=== PATIENT | female | born 1995 | race African-American/Black ===

== ENCOUNTER 2020-09-26 23:06 | Emergency (ER) | payer BC, SELFPAY ==
--- NOTE | ~2020-09-26 | US_ITS ---
EXAMINATION: US OB <=14 wk fetus w TV DATE: 09/27/2020 01:47 INDICATION: Pelvic pain and vaginal bleeding during first trimester of . TECHNIQUE: Real-time pelvic ultrasound utilizing both a transvaginal and transabdominal probe was pe rformed. The interpreting radiologist was not present for the study. COMPARISON: None. FINDINGS: The uterus measures 8.2 x 6.4 x 4.6 cm. There is an intrauterine gestational sac. A 2 mm thin-walled yolk sac is identified along with an approximately 8 mm ovoid echogenic region within the gestationa l sac is without evident heart motion on color Doppler. The in sac diameter measures 9 mm, whic h correlates with an estimated gestational age of 5 weeks and 3 days. The right ovary measures 3.2 x 2.7 x 2.0 cm. The left ovary measures 3.9 x 3.6 x 2.5 cm. Vascular joseph w identified in both ovaries on color Doppler. There is no free fluid in the pelvis. IMPRESSION: 1. Single intrauterine gestational sac containing a nonspecific 8 mm ovoid echogenic region unclear w hether this represents a pole but which is without evident heart motion and which raises concern for failed . Recommend correlation with serial beta-hCG levels. 2. Gestational age by ultrasound of mean sac diameter of 5 weeks 3 day(s) +/- 3 day(s) with ultrasou nd estimated date of delivery (BLANCA) of 05/27/2021. Reviewed, dictated and finalized at location A. BOX SPOTTER IMPRESSION: 1. Single intrauterine gestational sac containing a nonspecific 8 mm ovoid echo genic region unclear whether this represents a pole but which is without evident heart motion and which raises concern for failed . Recom mend correlation with serial beta-hCG levels. 2. Gestational age by ultrasound of mean sac diameter of 5 weeks 3 day(s) +/- 3 day(s) with ultrasound estimated date of delivery (BLANCA) of 05/27/2021.
[2020-09-26 23:13] VITALS: BP 128/98; PULSE 79; RESP 18; TEMP 36.3; O2SAT 100
[2020-09-26 23:54] LABS: Basophils Percent Auto 0.1 % (0.2-1.2); Eosinophils Absolute Auto 0.1 K/mm3 (0-0.3); Eosinophils Percent Auto 1.2 % (0-4.4); Hematocrit 36.8 % (37.0-47.0); Immature Granulocyte Absolute 0.02 K/mm3 (0.00-0.031); Immature Granulocyte Percent A 0.2 % (0-0.5); Lymphocytes Absolute Auto 1.99 K/mm3 (0.9-3.2); Lymphocytes Percent Auto 24.8 % (18.3-44.2); Mean Corpuscular HGB Conc 32.6 g/dl (32-36); Mean Corpuscular Hemoglobin 29.4 pg (26-34); Mean Corpuscular Volume 90.2 fl (80-100); Mean Platelet Volume 9.7 fl (7.4-10.4); Monocytes Absolute Auto 0.7 K/mm3 (0.1-0.6); Monocytes Percent Auto 9.2 % (2.6-8.5); Neutrophils Absolute Auto 5.2 K/mm3 (1.3-6.7); Neutrophils Percent Auto 64.5 % (45.5-73.1); Platelet Count Result 242 k/mm3 (150-375); Red Blood Count 4.08 M/mm3 (4.2-5.4); Red Cell Distribution Width 12.5 % (11.5-14.5)
[2020-09-27 00:04] LABS: Alanine Aminotransferase 15 U/L (4-35); Alkaline Phosphatase 52 U/L (38-126); Anion Gap 7 mmol/L (8-16); Aspartate Amino Transferase 23 U/L (14-36); Bilirubin,Total 0.3 mg/dL (0.2-1.3); Blood Urea Nitrogen 12 mg/dL (7-17); Calcium 9.3 mg/dL (8.4-10.2); Carbon Dioxide 28 mmol/L (22-30); Chloride 100 mmol/L (98-107); Estimated Glomerular Filt Rate > 60; Glucose 83 mg/dL (65-105); Potassium 3.7 mmol/L (3.4-5.0); Sodium 135 mmol/L (137-145)
[2020-09-27] MEDS: SODIUM CHLORIDE 0.9% IV 1,000 ML 999 ML IV CONT (00:16)
--- NOTE | 2020-09-27 00:34 | ED.GENADULT ---
HPI - General Adult General Chief complaint: Vaginal Bleeding Stated complaint: vaginal bleeding, 3-5wks Time Seen by Provider: 09/26/20 23:33 History of Present Illness HPI narrative: Patient a 24-year-old female presents the emergency department with chief complaint of vaginal bleeding. Patient states that she has recently found out that she was and was approximately 5 weeks . The patient states that she started having pain in her low back and also her pelvis states that it feels as though a cramping type discomfort. Patient states that she is on her second the previous one was a miscarriage. Patient reports she is just started seeing an POLICY ANALYST and has just had a positive test and has not had an ultrasound of this . Patient states that she has had some light vaginal bleeding of which she used several pieces of toilet paper to be able to stop the bleeding. Patient states that she has not had to use a pad. Patient denies fever denies shortness of breath denies chest pain. Related Data Allergies Allergy/AdvReac Type Severity Reaction Status Date / Time tramadol AdvReac Rash Verified 09/27/20 00:15 Course Course Emergency Course: Ultrasound shows evidence of a 5-week 3-day gestational sac. There is no pole or cardiac activity noted on ultrasound. Patient will need to follow-up with her POLICY ANALYST for short-term reassessment Vital Signs Vital signs: Vital Signs Temperature 36.3 C L 09/26/20 23:13 Pulse Rate 79 09/26/20 23:13 Respiratory Rate 18 09/26/20 23:13 Blood Pressure 128/98 H 09/26/20 23:13 Pulse Oximetry 100 09/26/20 23:13 Temperature 36.3 C L 09/26/20 23:13 Pulse Rate 79 09/26/20 23:13 Respiratory Rate 18 09/26/20 23:13 Blood Pressure 128/98 H 09/26/20 23:13 Pulse Oximetry 100 09/26/20 23:13 Medical Decision Making Vital Signs Vital Signs: Vital Signs Temperature 36.3 C L 09/26/20 23:13 Pulse Rate 79 09/26/20 23:13 Respiratory Rate 18 09/26/20 23:13 Blood Pressure 128/98 H 09/26/20 23:13 Pulse Oximetry 100 09/26/20 23:13 Temperature 36.3 C L 09/26/20 23:13 Pulse Rate 79 09/26/20 23:13 Respiratory Rate 18 09/26/20 23:13 Blood Pressure 128/98 H 09/26/20 23:13 Pulse Oximetry 100 09/26/20 23:13 Lab Data Result diagrams: 09/26/20 23:43 09/26/20 23:43 Labs: Lab Results 09/26/20 09/26/20 09/26/20 Range/Units 23:43 23:43 23:43 WBC 8.0 (4.5-10.0) K/mm3 RBC 4.08 L (4.2-5.4) M/mm3 Hgb 12.0 (12.0-15.0) g/dL Hct 36.8 L (37.0-47.0) % MCV 90.2 (80-100) fl MCH 29.4 (26-34) pg MCHC 32.6 (32-36) g/dl RDW 12.5 (11.5-14.5) % Plt Count 242 (150-375) k/mm3 MPV 9.7 (7.4-10.4) fl Immature Gran % (Auto) 0.2 (0-0.5) % Neut % (Auto) 64.5 (45.5-73.1) % Lymph % (Auto) 24.8 (18.3-44.2) % Kings % (Auto) 9.2 H (2.6-8.5) % Eos % (Auto) 1.2 (0-4.4) % Baso % (Auto) 0.1 L (0.2-1.2) % Lymph # (Auto) 1.99 (0.9-3.2) K/mm3 Kings # (Auto) 0.7 H (0.1-0.6) K/mm3 Eos # (Auto) 0.1 (0-0.3) K/mm3 Baso # (Auto) 0.0 (0.0-0.1) K/mm3 Abs Immat Gran (auto) 0.02 (0.00-0.031) K/mm3 Absolute Neuts (auto) 5.2 (1.3-6.7) K/mm3 Absolute Nucleated RBC 0.0 (0.0-0.012) K/mm3 Nucleated RBC % 0.0 (0.0-0.2) % Sodium 135 L (137-145) mmol/L Potassium 3.7 (3.4-5.0) mmol/L Chloride 100 (98-107) mmol/L Carbon Dioxide 28 (22-30) mmol/L Anion Gap 7 L (8-16) mmol/L BUN 12 (7-17) mg/dL Creatinine 1.00 (0.7-1.0) mg/dL Estim Creat Clear Calc Not Reportable Estimated GFR > 60 (59 - ) Glucose 83 (65-105) mg/dL Calcium 9.3 (8.4-10.2) mg/dL Total Bilirubin 0.3 (0.2-1.3) mg/dL AST 23 (14-36) U/L ALT 15 (4-35) U/L Alkaline Phosphatase 52 (38-126) U/L Total Protein 7.0 (6.3-8.2) g/dL Albumin 4.0 (3.5-5.1) g/dL Beta HCG,
[2020-09-27 01:38] LABS: Add Urine Microscopic? YES; Appearance Urine Clear (Clear); Bacteria Urine 3+ /hpf; Bilirubin Urine Negative (Negative); Blood Urine Negative (Negative); Color Urine Straw (Yellow); Glucose Urine UA Negative (Negative); Ketones Urine Negative (Negative); Leukocyte Esterase Ur Negative LEU/UL (Negative); Nitrate Urine Negative (Negative); Protein Urine Negative (Negative); RBC Urine 0-2 /hpf (0-2); Specific Grav Ur 1.014 (1.001-1.035); Squamous Epithelial Cell Urine Rare /hpf (Few); Urobilinogen Urine Negative mg/dL (<2.0); WBC Urine 0-3 /hpf
== END 2020-09-27 02:44 | disposition home or self-care (01) ==
PROVIDERS: Emergency Provider Emergency Medicine
DX: O20.0 Threatened abortion (principal); Z3A.01 Less than 8 weeks gestation of pregnancy
CPT/HCPCS: 36415; 76801; 76817; 80053; 81001; 84702; 85025; 85461; 96361; 96374; 99284; J0131; J7030

== ENCOUNTER → 2020-10-28 13:20 | Outpatient (CLI) | payer BC, SELFPAY ==
--- NOTE | ~2020-10-28 | US_ITS ---
EXAMINATION: US OB <= 14 weeks fetus DATE: 10/28/2020 13:54 INDICATION: Vaginal spotting. TECHNIQUE: Real-time transabdominal and transvaginal obstetric ultrasound. FINDINGS: Comparison to ultrasound dated 09/27/2020 The uterus measures 11.5 x 6.2 x 6.6 cm. There is an intrauterine gestational sac, with pole id entified. The crown rump length measures 2.99 cm. heart tones are identified measuring 182 bpm . Ovaries are not visualized. No free fluid in the pelvis. IMPRESSION: 1. SL IUP with an EGA of 9 weeks, 6 days (EDC by initial ultrasound of 05/27/2021). Appropriate inter justa growth. Reviewed, dictated and finalized at location A. S AND SERVICE OFFICER IMPRESSION: 1. SL IUP with an EGA of 9 weeks, 6 days (EDC by initial ultrasound of 05/27/20 21). Appropriate interval growth.
== END ==
PROVIDERS: Visit Provider Nurse Practitioner
DX: O26.851 Spotting complicating pregnancy, first trimester (principal); Z3A.09 9 weeks gestation of pregnancy
CPT/HCPCS: 76801

== ENCOUNTER → 2021-01-08 15:02 | Outpatient (CLI) | payer BC, SELFPAY ==
--- NOTE | ~2021-01-08 | US_ITS ---
US OB >= 14 weeks Fetus DATE: 01/08/2021 15:49 INDICATION: anatomy screen TECHNIQUE: Real-time imaging and Doppler analysis COMPARISON: 10/28/2020 obstetrical ultrasound examination 09/27/2020 obstetrical ultrasound examination FINDINGS: Live stanley intrauterine gestation, fetus in breech presentation. Anterior placenta, lower margin 8.9 cm above the internal os. Subjectively normal amount of amniotic fluid. No cerebral ventriculomegaly. facial profile appears normal. Nose and lips are unremarkab le. The cerebellum appears normal. Normal nuchal fold. The spine appears unremarkable on transverse and longitudinal views. diaphragm is intact. 4 chamber heart with heart rate of 168 bpm. Outflow tracts appear normal. No hydronephrosis. The kidneys appear unre markable. Fluid is demonstrated in the stomach and urinary bladder. extremities unr emarkable. Three-vessel umbilical cord with normal insertion at abdominal wall. Biparietal diameter 4.79 cm; 20 weeks 3 days estimated gestational age Head circumference 18.18 cm; 20 weeks 4 days Abdominal circumference 15.52 cm; 20 weeks 5 days Femur length 3.01 cm; 19 weeks 2 days Composite age by Hadlock formula based on the current measurements would be 20 weeks 2 days +/- 1 wee k 3 days with BLANCA of 05/26/2021, identical with estimated gestational age based upon 09/27/2020 mean sac diameter measurement and consistent with BLANCA of 05/27/2021 by last menstrual period. Estimated weight is 333.3 +/- 50 grams. EFW-GP: 43.8% Head circumference/abdominal circumference 1.17, within normal range of 1.07-1.25 Femur length/head circumference 16.56, within lower normal range of 16.54-19.94 IMPRESSION: Normal interval growth Reviewed, dictated and finalized at Location [facility]. Reviewed, dictated and finalized at location A. IMPRESSION: Normal interval growth
== END ==
PROVIDERS: Visit Provider Obstetrics & Gynecology
DX: Z36.9 Encounter for antenatal screening, unspecified (principal); Z3A.00 Weeks of gestation of pregnancy not specified
CPT/HCPCS: 76805

== ENCOUNTER 2024-08-06 17:37 | Emergency (ER) | payer BC, SELFPAY ==
[2024-08-06 18:02] VITALS: BP 105/62; PULSE 64; RESP 18; TEMP 36.2; O2SAT 100
[2024-08-06 18:13] LABS: EDUAAPPEAR Cloudy; EDUABILI Negative (Negative); EDUABLOOD Trace (Negative); EDUACOLOR1 Yellow; EDUAGLUCOSE Negative (Negative); EDUAKETONE Negative (Negative); EDUALEUKO 1+ (Negative); EDUANITRATE Positive (Negative); EDUAPROTEIN 1+ (Negative); EDUASPGRAVITY 1.025; EDUAUROBILI 0.2
--- NOTE | 2024-08-06 18:22 | ED.FEMALEGU ---
HPI - Female Genitourinary General Chief complaint: Urogenital-Female Stated complaint: possible UTI Time Seen by Provider: 08/06/24 18:22 History of Present Illness HPI Narrative: patient presents with complaints of urinary frequency and burning for 2 days. She reports that she became alarmed today when she noted some blood in her urine. She is concerned about STIs well as UTI. She reports that her and her partner recently stopped using condoms. She denies any vaginal discharge or vaginal odor. She does report urinary frequency, burning, urinary odor. She denies any abdominal pain or back pain. She denies any fever, chills, sweats. She voices no other concerns or complaints at this time. Related Data Home Medications Medication Instructions Recorded Confirmed levonorgestrel 21 mcg/24 hr (up to 1 device intrauterine ONCE 08/06/24 08/06/24 8 years) 52 mg intrauterine device (Mirena) valacyclovir 1 gram tablet 1,000 mg PO DAILY 08/06/24 08/06/24 Allergies Allergy/AdvReac Type Severity Reaction Status Date / Time levofloxacin AdvReac Mild Rash Verified 08/06/24 18:15 tramadol AdvReac Mild Rash Verified 08/06/24 17:38 Review of Systems Review of Systems: All systems reviewed & are unremarkable except as noted in HPI and below Constitutional: Constitutional: Reports no additional constitutional complaints ENT: Reports system reviewed and no additional complaints, except as documented Cardiovascular: Cardiovascular: Reports no additional cardiovascular complaints Respiratory: Respiratory: Reports no additional respiratory complaints Gastrointestinal: Gastrointestinal: Reports no additional gastrointestinal complaints Genitourinary: Genitourinary: Reports no additional female genitourinary complaints, Reports as per HPI, Reports dysuria and Reports urinary urgency Exam Const: General: cooperative, no acute distress, alert and awake Orientation/consciousness: oriented to person, oriented to place and oriented to time HENMT: Head: normal to inspection Resp: Effort & Inspection: normal respiratory effort and able to speak in complete sentences Auscultation: clear to auscultation bilaterally, no crackles, no rales, no rhonchi and no wheezes Cardio: Palpation: normal PMI Rate: regular rate Rhythm: regular rhythm Heart sounds: S1 normal heart sound present and S2 normal heart sound present : General: Yes no CVA tenderness Neuro: General: oriented to person, oriented to place and oriented to time Cranial nerves: Yes CN's II-XII intact bilaterally Psych: Appearance: grossly normal Thought process: Normal thought process present Insight: Good insight present (Psych) Judgement: Good judgement present (Psych) Course Course Level of Care: Express Care Visit Vital Signs Vital signs: Vital Signs Temperature 97.1 F L 08/06/24 18:02 Pulse Rate 64 08/06/24 18:02 Respiratory Rate 18 08/06/24 18:02 Blood Pressure 105/62 08/06/24 18:02 Pulse Oximetry 100 08/06/24 18:02 Oxygen Delivery Room Air 08/06/24 18:02 Temperature 97.1 F L 08/06/24 18:02 Pulse Rate 64 08/06/24 18:02 Respiratory Rate 18 08/06/24 18:02 Blood Pressure 105/62 08/06/24 18:02 Pulse Oximetry 100 08/06/24 18:02 Oxygen Delivery Room Air 08/06/24 18:02 MDM - Female Genitourinary MDM Narrative Medical decision making narrative: Reassuring physical exam. UA is consistent with UTI. Treat with Macrobid. Culture sent. STI testing pending. Patient aware. Nontoxic appearing, stable for discharge home. Discharge instructions reviewed with patient, as well as provided in writing per nursing staff. The instructions also include specific and strict return/GO TO THE ER as well as f/u information. All questions have been answered, and the patient deny any further questions with discharge and discharge plan. Some parts of this dictation were generated by voice recognition software and may contain typographical and/or grammatical inaccuracies. Differential Diagnosis Differential diagnosis: Likely urinary tract infection, trichomoniasis, cervicitis and vaginitis Lab Data Labs: Lab Results 08/06/24 Range/Units 18:11 POC Urine Color Yellow POC Urine Clarity Cloudy POC Urine pH 7.0 POC Ur Specif [place] 1.025 POC Urine Protein 1+ (Negative) POC Ur Glucose (UA) Negative (Negative) POC Urine Ketones Negative (Negative) POC Urine Blood Trace (Negative) POC Urine Nitrite Positive (Negative) POC Urine Bilirubin Negative (Negative) POC Urine Urobilinogen 0.2 POC U Leukocyte Esteras 1+ (Negative) Discharge Plan Discharge Clinical Impression: Urinary tract infection Qualifiers: Urinary tract infection type: site unspecified Hematuria presence: with hematuria Qualified Code(s): N39.0 - Urinary tract infection, site not specified Patient Disposition: Home, Self-Care Condition: Stable Instructions: Antibiotic Form, Urinary Tract Infection in Women (ED) Prescriptions: New nitrofurantoin monohyd/m-cryst [Macrobid] 100 mg capsule 100 mg PO Q12H 5 Days Qty: 10 0RF Rx Instructions: must administer with a meal/food No Action valacyclovir 1 gram tablet 1,000 mg PO DAILY Mirena 21 mcg/24hr (up to 8 yrs) 52 mg Intrauterine Device 1 device INTRAUTERINE ONCE Rx Instructions: as a single dose Follow-up/Referrals: Austin,Mauri Contreras MD [Primary Care Provider] - 2 Weeks Time of Disposition: 18:48
[2024-08-07 20:40] LABS: Chlamydia trachomatis NOT DETECTED (NOT DETECTE); Neisseria gonorrhoeae PCR NOT DETECTED (NOT DETECTE)
[2024-08-07 21:32] LABS: Trichomonas Vag PCR NOT DETECTED (NOT DETECTE)
== END 2024-08-06 18:50 | disposition home or self-care (01) ==
PROVIDERS: Emergency Provider Nurse Practitioner Family; PCP Family Medicine
DX: N39.0 Urinary tract infection, site not specified (principal)
CPT/HCPCS: 81003; 87086; 87186; 87491; 87591; 87661; 99213; G0463

== ENCOUNTER 2025-01-14 12:17 | Emergency (ER) | payer BC, SELFPAY ==
[2025-01-14 12:24] VITALS: BP 125/75; PULSE 68; RESP 18; TEMP 36.7; O2SAT 100
--- NOTE | 2025-01-14 12:30 | ED_ITS ---
HPI - Female Genitourinary General Chief complaint: Urogenital-Female Stated complaint: possible bacteria infection Time Seen by Provider: 01/14/25 12:35 Source: patient Mode of arrival: ambulatory Limitations: no limitations History of Present Illness HPI Narrative: Here with concern for possible STD. She reports a one-week history of feeling like she has vaginal odor, increased urinary frequency, and feeling irritated in her genital area. She reports white thin discharge. Reports a cyst on her left labia which is normal for her, but she denies any recent cyst prior to this. she denies any vaginal itch. Reports one new sex partner. Reports 2 male sex partners within the last year. Reports unprotected sex. Reports history of past STDs in the last 1-2 years. Uses IUD for prevention. She denies any concerns. She denies any fever or pelvic or abdominal pain. Denies nausea or vomiting. Related Data Home Medications ?Medication ?Instructions ?Recorded ?Confirmed ?Last Taken ?Type levonorgestrel (Mirena) 1 device intrauterine ONCE 08/06/24 08/06/24 Unknown History valacyclovir 1 gram tablet 1,000 mg PO DAILY 08/06/24 08/06/24 Unknown History Allergies Allergy/AdvReac Type Severity Reaction Status Date / Time levofloxacin Allergy Mild Rash Verified 01/14/25 12:29 tramadol Allergy Mild Rash Verified 01/14/25 12:29 Review of Systems Review of Systems: CONSTITUTIONAL: Denies fever, chills, or sweats. EYES: Denies visual changes, redness, or discharge. ENT: Denies rhinorrhea, congestion, sore throat, or otalgia. CARDIOVASCULAR: Denies chest pain, palpitations, or edema. RESPIRATORY: Denies cough or dyspnea. GASTROINTESTINAL: Denies abdominal pain, nausea, vomiting, or diarrhea. GENITOURINARY: Denies dysuria or hematuria. SKIN: Denies rash or itching. MUSCULOSKELETAL: Denies back pain, joint pain, or myalgia. NEUROLOGIC: Denies headache, numbness, or weakness. PSYCHIATRIC: Denies anxiety or depression. All other systems reviewed are negative, except as documented in HPI. Exam Narrative: GENERAL: This is a well-nourished, well-developed patient, in no apparent distress. HEAD: normocephalic, atraumatic. EYES:Sclera clear/white. EARS: External ears normal. NOSE: External nose normal with no obvious nasal discharge. THROAT: Trachea midline. RESPIRATORY: No cough. No dyspnea. SKIN: warm, Dry, intact with no suspicious lesions or rash, good texture and turgor. NEURO: awake, alert, and oriented to person, place and time. There were no obvious focal neurologic abnormalities. EXTREMITIES: No joint tenderness, effusion, or edema noted. : Pelvic exam performed with (Ashanti MARTINEZ) at bedside. Verbal consent obtained from patient. Normal external female genitalia without lesions or masses, Urinary meatus: patent without discharge, Vagina: No lesions, masses, or discharge, Cervix: pink without mass, lesions, or tenderness. Notable white thin discharge. Course Course Level of Care: Express Care Visit Vital Signs Vital signs: Vital Signs Temperature 36.7 C 01/14/25 12:24 Pulse Rate 68 01/14/25 12:24 Respiratory Rate 18 01/14/25 12:24 Blood Pressure 125/75 01/14/25 12:24 Pulse Oximetry 100 01/14/25 12:24 Oxygen Delivery Room Air 01/14/25 12:24 Temperature 36.7 C 01/14/25 12:24 Pulse Rate 68 01/14/25 12:24 Respiratory Rate 18 01/14/25 12:24 Blood Pressure 125/75 01/14/25 12:24 Pulse Oximetry 100 01/14/25 12:24 Oxygen Delivery Room Air 01/14/25 12:24 Reviewed. MDM - Female Genitourinary MDM Narrative Medical decision making narrative: Patient with vaginal irritation white vaginal discharge. Her UA was negative for infection today. Patient concerned for a possible STD with new sex partner. Pelvic exam notable for white thin cervical discharge. Exam was otherwise normal today. Shared decision making with patient and patient elected for pelvic exam in clinic today. Patient and I discussed treatment versus waiting for test results. She will wait for test results prior to any treatment. Patient is aware of and agrees this plan. Lab Data Lab results narrative: UA negative for infection today. Discharge Plan Discharge Clinical Impression: Vaginal discharge Patient Disposition: Home Condition: Stable Instructions: Antibiotic Form, Sexually Transmitted Diseases (ED), Safe Sex Practices (ED) Additional Instructions: You were seen and tested today for STD exposure.? You do not require a pre scription to go home on.? Your test results will not be available for 3-4 days after test submitted.? No sex for 7 days after last partner treated.? Practice safe sex; use condoms with each sexual encounter.? Please follow up with primary medical provider.?? Patient Language: Frisian Prescriptions: No Action valacyclovir 1 gram tablet 1,000 mg PO DAILY Mirena 21 mcg/24hr (up to 8 yrs) 52 mg Intrauterine Device 1 device INTRAUTERINE ONCE Rx Instructions: as a single dose Follow-up/Referrals: Austin,Mauri Contreras MD [Primary Care Provider] - Time of Disposition: 13:20
[2025-01-14 12:33] LABS: EDUAAPPEAR Clear; EDUABILI Negative (Negative); EDUABLOOD Negative (Negative); EDUACOLOR1 Yellow; EDUAGLUCOSE Negative (Negative); EDUAKETONE Negative (Negative); EDUALEUKO Negative (Negative); EDUANITRATE Negative (Negative); EDUAPROTEIN Negative (Negative); EDUAUROBILI 0.2
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
--- OUTSIDE RECORDS SUMMARY | 2025-01-14 13:45 | XMS_ITS | Clinical Summary ---
Author Organization [facility] Address [address] [address] Care Team Providers Care Extruder Operator Helper Name Role Phone Anali Perez MD Unavailable [phone] Mauri Avila MD Primary Care Provider [phone] Source Comments [facility],non-owned Affiliates and Associated Physician Practices is amultiple site organization consisting of ambulatory clinics and hospital sitesin [place], [place], [place] and [place]. This disclosure is being madepursuant to the Care Everywhere program and may not contain all information available regarding this patient. Last updated 18.[facility] Allergies Active Allergy Reactions Criticality Noted Date Comments Kiwi Extract Rash,Swelling,Other High 02/15/2019 Swollen tongue Levofloxacin Rash Medium 02/15/2019 rash Peanut-Derived Rash,Swelling Medium 02/15/2019 Swollen tongue Mouth swelling Pet fur/dander [Other] Rash,Swelling,Oth er, Cough Medium Puffiness, sneezing Pollen Extract Rash,Rhinitis,Other, Wheezing Medium 02/15/2019 Watery eyes Tramadol Urticaria,Rash,Unkno wn Medium 02/15/2019 rash Medications * Be aware that medications may not be up to date on this document. Alwaysverify current medications with the patient. levonorgestrel (Mirena, 52 MG,) 20 MCG/DAY IUD Mirena 21 mcg/24 hours (8 yrs) 52 mg intrauterine device Take 1 device by intrauterine route. Active valACYclovir (Valtrex) 1 GM tablet Take 1 (one) tablet by mouth once daily 3 Active EPINEPHrine (Epipen) 0.3 MG/0.3ML auto-injector pen Inject 0.3 mL into muscle once as needed for Anaphylaxis 2 Active albuterol HFA (Proventil; Ventolin; Proair) 108 (90 Base) MCG/ACT inhaler Inhale 2 (two) puffs by mouth every 4 hours as needed Active montelukast (Singulair) 10 MG tablet Take 1 (one) tablet by mouth every evening 3 Active omeprazole (PriLOSEC) 40 MG capsule Take 1 (one) capsule by mouth once daily 90 capsule 1 3 Active metoclopramide (Reglan) 5 MG tablet Take 1 (one) tablet by mouth every 6 hours as needed for Nausea/Vomiting 20 tablet 3 Active Additional Information Patient not taking.Reported on 11/25/2023 hyoscyamine (Levsin) 0.125 MG IR tablet Take 1 (one) tablet by mouth every 6 hours as needed for Spasms 20 tablet 3 Active Additional Information Patient not taking.Reported on 08/02/2023 docusate sodium (Colace) 100 MG capsule Take 1 (one) capsule by mouth 2 times daily as needed for Constipation (relief of difficult bowel movements) 3 Active Additional Information Patient not taking.Reported on 08/02/2023 magnesium hydroxide (Milk Of Magnesia) 400 MG/5ML suspension Take 15 mL by mouth as needed for Constipation May start 3 days after surgery, if you still haven't had a bowel movement. Give the first dose at least 8 hours to work, before you repeat it to avoid diarrhea. Let us know if you still can't have a BM, with both colace and milk of magnesia, by day 4 after surgery. 3 Active Additional Information Patient not taking.Reported on 08/02/2023 Simethicone (GAS-X PO) Take 1 tablet by mouth as needed (gas) Active Multiple Vitamins-Minera ls (CENTRUM SILVER PO) Take 1 tablet by mouth 2 times daily Active CALCIUM CITRATE PO Take 1 tablet by mouth 2 times daily Active Active Problems Problem Noted Date Diagnosed Date S/P gastric sleeve procedure 08/02/2023 Morbid obesity 07/25/2023 Hypertension, unspecified type 07/25/2023 Obstructive sleep apnea syndrome 07/25/2023 Moderate persistent asthma with acute exacerbati on 07/25/2023 Class 2 obesity due to exces s calories with body mass index (BMI) of 38.0 to 38.9 in adult, unspecified whether serious comorbidity present 07/25/2023 PCOS (polycystic ovarian syndrome) 03/11/2023 Polyp of colon 03/11/2023 Class 3 severe obesity with body mass index (BMI) of 40.0 to 44.9 in adult 03/11/2023 Asthma 02/22/2023 Vitamin B12 deficiency 02/22/2023 Psoriasis 02/22/2023 BMI 40.0-44.9, adult 02/22/2023 Family history of colon cancer 02/22/2023 H/O cold sores 02/22/2023 Hypercholesteremia 02/22/2023 Dyslipidemia 02/22/2023 IBS (irritable bowel syndrome) 02/07/2023 Mild intermittent asthma without complication 02/07/2023 Morbid obesity due to excess calories 07/02/2022 02/07/2023 Overview (02/07/2023): Added automatically from request for surgery [id number] Hypertension 08/26/2020 Overview (02/07/2023): due to preeclampsia Vitamin D deficiency 08/26/2020 Overview (02/22/2023): due to preeclampsia Eczema 05/01/2018 Environmental allergies 12/30/2016 Sleep apnea 11/24/2009 Resolved Problems Problem Noted Date Diagnosed Date Resolved Date Nonspecific abnormal electro cardiogram (ECG) (EKG) 02/22/2023 06/29/2023 Preeclampsia 02/07/2023 02/22/2023 delivery, delivered , current hospitalization 05/28/2021 02/22/2023 Normal course 05/28/2021 05/26/2021 02/22/2023 Encounter for elective induction of labor 05/22/2021 02/22/2023 Immunizations Immunization Administration Dates Next Due INFLUENZA VACCINE, QUADR. (F LUZONE; FLULAVAL; FLUARIX; AFLURIA QUADRIVALENT; 6MO+), 0.5 ML (IIV4) 07/27/2023 Family History Medical History Relation Name Comments Cancer Father On paternal hilda e, there is history of colon cancer. Diabetes; unknown type Father Heart Failure Father Diabetes; unknown type Maternal Grandfather Cancer Maternal Grandmother On mate rnal side, there is history of badder, ovary, breast. Heart Failure Paternal Grandfather Diabetes; unknown type Paternal Grandmother Heart Failure Paternal Grandmother Relation Name Status Comments Father Maternal Grandfather Maternal Grandmother Paternal Grandfather Paternal Grandmother Social History Tobacco Use Types Packs/Day Years Used Date Smoking Tobacco: Never Smokeless Tobacco: Never Tobacco Cessation:Counseling Given: Not Answered Alcohol Use Standard Drinks/Week Comments Not Currently 0 (1 standard drink = 0.6 oz pur e alcohol) socially/occassional AUDIT-C Answer Date Recorded Q1: How often do you have a drink containing alcohol? Never 07/25/2023 Q2: How many drinks containi ng alcohol do you have on a typical day when you are drinking? Patient does not drink Q3: How often do you have si x or more drinks on one occasion? Never 07/25/2023 Overall Financial Resource Strain (CARDIA) Answe r Date Recorded How hard is it for you to pa y for the very basics like food, housing, medical care, and heating? Not hard at all 07/26/2023 PHQ-2 Answer Date Recorded Patient Health Questionnaire-2 Score 0 11/25/2023 [facility] - Occupational Stress Questionnaire Answer Date Recorded Do you feel stress - tense, restless, nervous, or anxious, or unable to sleep at night because your mind is troubled all the time - these days? Not at all 07/26/2023 Hunger Vital Sign Answer Date Recorded Within the past 12 months, y ou worried that your food would run out before you got the money to buy more. Never true 07/26/20 23 Within the past 12 months, t he food you bought just didn't last and you didn't have money to get more. Never true 07/26/2023 PRAPARE - Transportation Answer Date Re corded In the past 12 months, has l ack of transportation kept you from medical appointments or from getting medications? No 06/28 In the past 12 months, has l ack of transportation kept you from meetings, work, or from getting things needed for daily living? No 07/26/2023 Housing Stability Vital Sign Answer Bin e Recorded In the last 12 months, was t here a time when you were not able to pay the mortgage or rent on time? No 07/26/2023 In the last 12 months, how many places have you lived? 1 07/26/2023 In the last 12 months, was t here a time when you did not have a steady place to sleep or slept in a snf (including now)? No 07/26/2023 Comments No Sex and Gender Information Value Date Recorded Sex Assigned at Female 10/13/2022 9:35 AM BERRY PLANTER Legal Sex Female 6:11 PM BERRY PLANTER Gender Identity Female 10/10/2019 3:50 PM BERRY PLANTER Sexual Orientation Straight 10/13/2022 9: 35 AM BERRY PLANTER Last Filed Vital Signs Vital Sign Reading Time Taken Comments Blood Pressure 130/66 08/02/2023 11:00 AM BERRY PLANTER Pulse 73 08/02/2023 11:00 AM BERRY PLANTER Temperature 36.2 C (97.1 F) 08/02/2023 11:00 AM BERRY PLANTER Respiratory Rate 18 08/02/2023 11:0 0 AM BERRY PLANTER Oxygen Saturation 99% 08/02/2023 11: 00 AM BERRY PLANTER Inhaled Oxygen Concentration - - Weight 68 kg (150 lb) 02/06/2024 10:00 AM CDT Per pt-as of Sunday 11/05 Height 162.6 cm (5' 4 ) 02/06/2024 10:0 0 AM CDT Body Mass Index 25.75 02/06/2024 10:00 AM CDT Plan of Treatment Health Maintenance Due Date Last Done Comments PAP SMEAR 1995 HEPATITIS C SCREENING 12/05/2013 DTAP/TDAP/TD VACCINES (1 - Tdap) 12/09/2014 HEPATITIS B VACCINE (1 of 3 - 19+ 3-dose series) 12/09/2014 PNEUMOCOCCAL VACCINE (1 of 2 - PCV) 12/09/2014 COVID-19 VACCINE (3 - 2023-2 5 season) 2024 04/25/2021, 03/28/2021 DEPRESSION SCREENING 09/26/2024 11/25/2023, 03/10/2023 INFLUENZA VACCINE (Season Ended) 2025 07/27/2023, 08/08/2022 ZOSTER VACCINE (1 of 2) 12/09/2045 HIV SCREENING Completed 03/20/2021, 10/27/2020 HIB VACCINE Aged Out No longer eligi ble based on patient's age to complete this topic HPV VACCINE Aged Out No longer eligi ble based on patient's age to complete this topic MENINGOCOCCAL (Group B) VACCINE SHARED DECISION-MAKING Aged Out No longer eligible based on patient's age to complete this topic MENINGOCOCCAL GROUPS A/C/Y/W VACCINE Aged Out No longer eligible b ased on patient's age to complete this topic Insurance [place] [id number] Advance Directives * Full Code (Latest Code Status on File) Date Activated Date Inactivated Comments 07/25/2023 2:27 PM 07/27/2023 7:28 PM Care Teams Extruder Operator Helper Relationship Specialty Start Date End Date Mauri Avila MD [address] [place] [phone] PCP - General Family Medicine 02/23/23 Anali Perez MD [address] [place] [address] Primary Care Provider Obstetrics and Gynecology 02/22/23
--- OUTSIDE RECORDS SUMMARY | 2025-01-14 13:45 | XMS_ITS | Referral Summary ---
Author Organization [facility] Address [address] [place] [address] Care Team Providers Care Social Service Worker Name Role Phone Jose Dawn MD Unavailable [phone] Mauri Avila MD Primary Care Provider [phone] Allergies Active Allergy Reactions Criticality Noted Date Comments Cat Dander Rash,Sneezing Medium 02/15/2019 Watery eyes Kiwi Rash,Swollen tongue High 02/15/2019 Levofloxacin Rash Medium 02/15/2019 Peanut Swelling,Rash Medium 02/15/2019 Mouth swelling Pollen Extracts Rash,Sneezing Medium 02/15/2019 Watery eyes Tramadol Hcl Rash Medium 02/15/2019 Medications triamcinolone (KENALOG) 0.1 % ointment APPLY THIN COAT TO AFFECTED AREA TWICE A DAY 0 12/21/19 19 Active valACYclovir (VALTREX) 1 gram tablet 0 11/11/19 19 Active albuterol HFA (PROVENTIL HFA,VENTOLIN HFA,PROAIR HFA) 90 mcg/actuation inhaler Inhale 2 puffs every 6 (six) hours as needed 10/10/19 20 Active cholecalcifero l (VITAMIN D-3) 5,000 unit capsule cholecalciferol (vitamin D3) 125 mcg (5,000 unit) capsule TAKE 1 CAPSULE BY MOUTH EVERY DAY 02/18/20 21 Active ferrous fumarate 324 mg (106 mg iron) tablet Take 1 tablet by mouth daily 05/28/20 21 Active levonorgestreL (Mirena) IUD Mirena 20 mcg/24 hours (7 yrs) 52 mg intrauterine device Take 1 device by intrauterine route. Activ e Active Problems Problem Noted Date Diagnosed Date Mild intermittent asthma without complication Morbid obesity due to excess calories 07/02/2022 Overview (07/02/2022): Added automatically from request for surgery [id number] BMI 37.0-37.9, adult 04/28/2022 Flexural eczema 05/01/2018 Environmental allergies 12/30/2016 Social History Tobacco Use Types Packs/Day Years Used Date Smoking Tobacco: Never Smokeless Tobacco: Never Tobacco Cessation:Counseling Given: Not Answered Alcohol Use Standard Drinks/Week Comments Yes 0 (1 standard drink = 0.6 oz pur e alcohol) Social AUDIT-C Answer Date Recorded Q1: How often do you have a drink containing alc ohol? 2-4 times a month 03/21/2023 Q2: How many drinks containi ng alcohol do you have on a typical day when you are drinking? 1 or 2 03/21/2023 Q3: How often do you have si x or more drinks on one occasion? Never 03/21/2023 Personal Safety Answer Date Recorded Getting School Help Needed Not on file 06/23 Comments No Sex and Gender Information Value Date Recorded Sex Assigned at Not on file Legal Sex Female 10:15 PM TRACK REPAIR WORKER Gender Identity Not on file Sexual Orientation Not on file Last Filed Vital Signs Vital Sign Reading Time Taken Comments Blood Pressure 145/82 05/27/2023 6:15 PM CDT Pulse 65 05/27/2023 6:15 PM CDT Temperature 36.9 C (98.5 F) 05/27/2023 6:15 PM CDT Respiratory Rate 16 05/27/2023 6:15 PM CDT Oxygen Saturation 99% 05/27/2023 6:15 PM CDT Inhaled Oxygen Concentration - - Weight 103.6 kg (228 lb 6.3 oz) 023 12:14 PM CDT Height 162.6 cm (5' 4 ) 05/27/2023 12:1 4 PM CDT Body Mass Index 39.2 05/27/2023 12:14 PM CDT Plan of Treatment Not on file Procedures Procedure Name Priority Date/Time Associated Diagnosis Comments THINPREP TIS PAP REFLEX HPV MRNA E6/E7, CHLAMYDIA/N.GONORRH OEAE Routine 06/21/2018 10:30 AM CDT HEPATITIS PANEL, ACUTE Routine 12/14/2013 11:26 PM CDT from Last 3 Months or Most Recently Relevant to Health Maintenance Results * THINPREP TIS PAP REFLEX HPV mRNA E6/E7, CHLAMYDIA/N.GONORRHOEAE (06/21/2018 10:30 AM CDT) CLINICAL INFORMATION [facility] HISTORICAL RESULTS Comment:Information not prov ided LMP: 04/25/2018 [facility] HIST[facility] RESULTS PREV. PAP: [facility] HISTORICAL RESULTS Comment:NO PREVIOUS HX PREV. BX: [facility] HIST[facility]ICAL RESULTS Comment:INFORMATION NOT PROV IDED SOURCE: [facility] HISTORICAL RESULTS Comment:Cervix, Endocervix STATEMENT OF ADEQUACY: [facility] HISTORICAL RESULTS Comment:Satisfactory for landon luation. Endocervical/transformation zone component present. INTERPRETATION/RES ULT: [facility] HISTORICAL RESULTS Comment:Negative for intraep ithelial lesion or malignancy. COMMENT: [facility] HIST[facility]ICAL RESULTS Comment:This Pap test has be en evaluated with computer assisted technology. EDGE STITCHER: [facility] HISTORICAL RESULTS Comment:BEF, CT(ASCP) COMMENT [facility] HIST[facility]ICAL RESULTS Comment: EXPLANATORY NOTE: The Pap is a screening test for cervical cancer. It is not a diagnostic test and is subject to false negative and false positive results. It is most reliable when a satisfactory sample, regularly obtained, is submitted with relevant clinical findings and history, and when the Pap result is evaluated along with historic and current clinical information. C. trachomatis RNA NOT DETECTED NOT DETECTED [facility] H[facility] N. gonorrhoeae RNA NOT DETECTED NOT DETECTED [facility] COMMENT [facility] HISTORICAL RESULTS Comment: This test was performed using the APTIMA COMBO2 Assay ([employer] The analytical performance characteristics of this assay, when used to test SurePath specimens have been determined by [employer]. 06/21/2018 10:3 0 AM CDT 06/25/2018 1:25 PM CDT Narrative [facility] - 06/25/2018 1:13 PM CDT 0 PERFORMING LAB: PAT, [facility] [address] [address] [phone] Gerard Polanco D.O., MPH , Director - [id number] [address] [facility] PER[facility]: , [facility] [address] [address] [phone] [employer] Yanelis Decker , Director - [id number] [address] [facility] Madelyn Polanco MD LAB PATHOLOGY ORDERABLES Fin al Result [facility] HISTORICAL RESULTS * Hepatitis panel, acute (12/14/2013 11:26 PM CDT) HepBsAg NONREACT NONREACTIVE Comment: Siemens CentaurXP using ROGER (chemiluminescent immunoassay) technology. NONREACTIVE: IgM antibodies to Hepatitis B Surface antigen not detected. REACTIVE: IgM antibodies to Hepatitis B Surface antigen detected. Reactive results will be confirmed by neutralization testing. HBsAb (immune status) NONREACT NONREACTIVE Comment: Siemens CentaurXP using ROGER (chemiluminescent immunoassay) technology. NONREACTIVE: IgM antibodies to Hepatitis B Surface antibody not detected. REACTIVE: IgM antibodies to Hepatitis B Surface antibody detected. Hep B core IgM NONREACT NONREACTIVE 4 12:45 AM [facility] HISTORICAL RESULTS Comment: Siemens CentaurXP using ROGER (chemiluminescent immunoassay) technology. NONREACTIVE: IgM antibodies to Hepatitis B Core antigen not detected. EQUIVOCAL: IgM antibodies to Hepatitis B Core antigen may or may not be present. Obtain a new specimen and retest. REACTIVE: IgM antibodies to Hepatitis B Core antigen detected. Hep A IgM NONREACT NONREACTIVE Comment: Siemens CentaurXP using ROGER (chemiluminescent immunoassay) technology. NONREACTIVE: IgM antibodies to Hepatitis A not detected. This does not exclude possibility of exposure to Hepatitis A or early acute infection. EQUIVOCAL:IgM antibodies to Hepatitis A may or may not be present. Suggest recollection and retest. REACTIVE: Antibodies to Hepatitis A detected. Hep C Ab NONREACT NONREACTIVE 12/15/2013 12:[address] [facility] HISTORICAL RESULTS Comment: Siemens [employer] using ROGER (chemiluminescent immunoassay) technology. NONREACTIVE: Antibodies to Hepatitis C not detected. This does not exclude early acute Hepatitis C infection, possibility of exposure to Hepatitis C, antibodies below detection limit, or to lack of antibody reactivity to the antigen used in this assay. EQUIVOCAL: Antibodies to Hepatitis C may or may not be present. Sample to be confirmed by real-time PCR method. REACTIVE: Antibodies to Hepatitis C detected. 12/14/2013 11:2 6 PM CDT 12/14/2013 11:29 PM CDT us Historical Provider LAB MICROBIOLOGY - GENERA L ORDERABLES Final Result [facility] HISTORICAL RESULTS from Last 3 Months or Most Recently Relevant to Health Maintenance Insurance [facility] [address] [place] [place] [address] [facility] Advance Directives For more information, please contact: [phone] * Full Code (Latest Code Status on File) Date Activated Date Inactivated Comments 08/18/2022 8:16 AM 08/18/2022 1:43 PM Care Teams Social Service Worker Relationship Specialty Start Date End Date Mauri Avila MD [facility] [address] [place] [address] PCP - General Family Medicine 03/14/23 Jose Dawn MD [facility] [address] [place] [address] Consulting Physician Obstetrics and Gynecology 06/10/20
--- OUTSIDE RECORDS SUMMARY | 2025-01-14 13:45 | XMS_ITS | Encounter Summary ---
Author Organization [facility] Address [address] [place] [address] Care Team Providers Care Almond Roaster Name Role Phone Anali Perez MD Unavailable [phone] Mauri Avila MD Primary Care Provider [phone] Reason for Visit * Reason Onset Date Comments Appointment 06/01/2023 Encounter Details Date Type Department Care Team (Late st Contact Info) Description 06/01/2023 Telephone [facility] [address] [place] [phone] Ely Alvarenga MD [address] [place] [address] Appointment Social History Tobacco Use Types Packs/Day Years Used Date Smoking Tobacco: Never Smokeless Tobacco: Never Alcohol Use Standard Drinks/Week Comments Not Currently 0 (1 standard drink = 0.6 oz pur e alcohol) AUDIT-C Answer Date Recorded Q1: How often do you have a drink containing alc ohol? Never 09/22/2021 Average Number of Drinks Not on file 021 Q3: How often do you have si x or more drinks on one occasion? Never 09/22/2021 PHQ-2 Answer Date Recorded PHQ2 TOTAL SCORE 0 03/10/2023 Comments No Sex and Gender Information Value Date Recorded Sex Assigned at Female 10/13/2022 9:35 AM BROADCAST OPERATIONS TECHNICIAN Legal Sex Female 6:11 PM BROADCAST OPERATIONS TECHNICIAN Gender Identity Female 10/10/2019 3:50 PM BROADCAST OPERATIONS TECHNICIAN Sexual Orientation Straight 10/13/2022 9: 35 AM BROADCAST OPERATIONS TECHNICIAN documented as of this encounter Miscellaneous Notes * Telephone Encounter - Catherine Paz - 06/01/2023 8:35 AM CDT Patient called clinic asking if she can switch her final h&p to video visit. Her last visit wasvideo visit, asked Danuta and she said She really needs to be in person but ultimately it's Dr. Alvarenga's decision. Mamie said her boss is just not letting her off of work. She will need to reschedule this appointment if she can switch to video. Routing to Nicole and Dr. Alvarenga. documented in this encounter Plan of Treatment Not on file documented as of this encounter Visit Diagnoses Not on filedocumented in this encounter Care Teams Almond Roaster Relationship Specialty Start Date End Date Mauri Avila MD [address] [phone] PCP - General Family Medicine 02/23/23 Anali Perez MD [address] [place] [address] Primary Care Provider Obstetrics and Gynecology 02/22/23 documented as of this encounter
--- OUTSIDE RECORDS SUMMARY | 2025-01-14 13:45 | XMS_ITS | Clinical Summary ---
Author Organization [facility] Address [address] [place] [phone] Care Team Providers Care Hand Ironer Name Role Phone Unavailable Primary Care Provider Unavailabl e Social History Tobacco Use Types Packs/Day Years Used Date Smoking Tobacco: Never Assessed Comments Unknown Sex and Gender Information Value Date Recorded Sex Assigned at Not on file Legal Sex Female 8:55 AM VIDEO MACHINES MECHANIC Gender Identity Not on file Sexual Orientation Not on file Plan of Treatment Health Maintenance Due Date Last Done Comments Hepatitis C Virus (HCV) Screening 1995 TdaP Immunization 1995 Hepatitis B Immunization (1 of 3 - 19+ 3-dose series) 12/09/2014 Pap Smear 12/09/2016 Influenza Immunization (#1) 2024 SARS-COV-2 Immunization ( season) 2024 Respiratory Syncytial Virus (RSV) Immunization (Adult) (1 - 1-dose 75+ series) 12/09/2070 Meningococcal Immunization (ACWY) Aged Out No longer eligible based on patient's age to complete this topic Pneumococcal Immunization Combined Aged Out No longer eligible based on patient's age to complete this topic Rotavirus Immunization Aged Out No lo nger eligible based on patient's age to complete this topic
--- OUTSIDE RECORDS SUMMARY | 2025-01-14 13:45 | XMS_ITS | Clinical Summary ---
Author Organization [facility] at [facility] Center Address [address] [place] [address] Care Team Providers Care Flame Hardening Machine Setter Name Role Phone Jose Dawn MD Unavailable [phone] Marui Avila MD Primary Care Provider [phone] Allergies Active Allergy Reactions Criticality Noted Date [...] (07/02/2022): Added automatically from request for surgery [id number] BMI 37.0-37.9, adult 04/28/2022 Flexural eczema 05/01/2018 Environmental allergies 12/30/2016 Surgical History Surgery Date Site/Laterality Comments CHOLECYSTECTOMY 02/15/2019 SECTION 05/26/2021 COLONOSCOPY 09/26/2016 - 09/25/2017 Medical History Medical History Date Comments Seasonal allergies Eczema H/O cold sores Asthma Hypertension 2020 Female infertility 2018 Irritable bowel syndrome 2019 Obesity 2010 Family History Medical History Relation Name Comments Obesity Brother Clarence Spence Jr. Cancer Father Clarence Spence Colon cancer Father Clarence Spence Diabetes Father Clarence Spence Sleep apnea Father Clarence Spence Stomach cancer Father Clarence Spence Alcohol abuse Maternal Grandfather Marcial Schafer Diabetes Maternal Grandfather Marcial Schafer Hypertension Maternal Grandfather Marcial Schafer Arthritis Maternal Grandmother Meka Schafer Asthma Maternal Grandmother Meka Schafer Bladder Cancer Maternal Grandmother Meka Schafer Cancer Maternal Grandmother Meka Schafer Alcohol abuse Mother's Brother Junito Schafer Diabetes Paternal Grandfather Gerard Bebe Hypertension Paternal Grandfather Gerard Bebe Diabetes Paternal Grandmother [place] Bebe Hypertension Paternal Grandmother [place] Bebe Relation Name Status Comments Brother Clarence Spence Jr. 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 Gender Identity Not on file Sexual Orientation Not on file Obstetrics History Para Term AB IAB SAB Ectopic Multiple Livin g Live Births 1 0 0 0 1 0 0 0 0 0 0 Date Outcome GA Total Labor Labor/2nd/3rd Weight Sex Type Anes PTL Kandis A1 A5 Name Clin AB Last Filed Vital Signs Vital Sign Reading [...] 05/27/2023 12:14 PM CDT Plan of Treatment Health Maintenance Due Date Last Done Comments Depression Screening 1995 Varicella Vaccines (1 of 2 - 13+ 2-dose series) 12/09/2008 Hepatitis B Screening 12/09/2013 Regular Well Visit/Exam 18-64 12/09/2013 Pneumococcal vaccine <65 (1 of 2 - PCV) 12/09/2014 Cervical Cancer Screening 06/21/2019 06/21/2018 Covid-19 Vaccine (3 - 2023-2 5 season) 2024 04/25/2021, 03/28/2021 Influenza Vaccine (Season Ended) 2025 08/08/2022 DTaP/Tdap/Td Vaccine (3 - Td or Tdap) 08/08/2032 08/08/2022, 06/07/1996 Hepatitis C Screening Completed 12/14/2013 HPV Vaccines Aged Out No longer eligi ble based on patient's age to complete this topic Procedures Procedure Name Priority Date/Time Associated Diagnosis [...] [facility] HISTORICAL RESULTS PREV. PAP: [facility] HISTORICAL RESULTS Comment:NO PREVIOUS HX PREV. BX: [facility] - [facility] HISTORICAL RESULTS Comment:INFORMATION NOT PROV IDED SOURCE: [facility] HISTORICAL RESULTS Comment:Cervix, Endocervix STATEMENT OF ADEQUACY: [facility] - [facility] HISTORICAL RESULTS Comment:Satisfactory for landon luation. Endocervical/transformation zone component present. INTERPRETATION/RES ULT: [facility] HISTORICAL RESULTS Comment:Negative for intraep ithelial lesion or malignancy. COMMENT: [facility] - [facility] HISTORICAL RESULTS Comment:This Pap test has be en evaluated with computer assisted technology. MIXER OPERATOR RAW SALT: [facility] HISTORICAL RESULTS Comment:BEF, CT(ASCP) COMMENT [facility] - [facility] HISTORICAL RESULTS Comment: EXPLANATORY [...] C. trachomatis RNA NOT DETECTED NOT DETECTED [facility] HISTORICAL RESULTS N. gonorrhoeae RNA NOT DETECTED NOT DETECTED [facility] HISTORICAL RESULTS COMMENT [facility] - EC HISTORICAL RESULTS Comment: This test was performed using the APTIMA COMBO2 Assay ([employer] The analytical performance characteristics of this assay, when used to test SurePath specimens have been determined by [facility]. 06/21/2018 10:3 0 AM CDT 06/25/2018 1:25 PM CDT Narrative [facility] HISTORICAL RESULTS - 06/25/2018 1:13 PM CDT 0 PERFORMING LAB: PAT, [facility] [address] [phone] Gerard Polanco D.O., MPH , Director - [id number] [address] [facility] PER[facility]ING LAB: [facility] [id number] [facility] [phone] SerenityMitul Decker , Director - [id number] [facility] us Madelyn Polanco MD LAB PATHOLOGY ORDERABLES Fin al Result [facility] HISTORICAL RESULTS * Hepatitis panel, acute (12/14/2013 [...] core IgM NONREACT NONREACTIVE 4 12:45 AM [facility] HISTORICAL RESULTS Comment: Siemens CentaurXP [...] Ab NONREACT NONREACTIVE 12/15/2013 12:44 AM CDT [facility] HISTORICAL RESULTS Comment: Siemens CentaurXP using ROGER (chemiluminescent immunoassay) technology. NONREACTIVE: Antibodies [...] MICROBIOLOGY - GENERA L ORDERABLES Final Result [facility] HISTORICAL RESULTS from Last 3 Months or Most Recently Relevant to Health Maintenance Insurance [facility] M[place] [id number] [facility] ANTHEM ACCESS CHOICE [facility] Advance Directives For more information, please contact: [phone] * Full Code (Latest Code Status on File) Date Activated Date Inactivated Comments 08/18/2022 8:16 AM 08/18/2022 1:43 PM Care Teams Flame Hardening Machine Setter Relationship Specialty Start Date End Date Mauri Avila MD [facility]EL[facility] Amaro [address] [place] [address] PCP - General Family Medicine 03/14/23 Jose Dawn MD [address] [place] [address] DR Sondra MENDEZ [address] [place] [id number] Consulting Physician Obstetrics and Gynecology 06/10/20
--- OUTSIDE RECORDS SUMMARY | 2025-01-14 13:45 | XMS_ITS | Encounter Summary ---
Author Organization [facility] Address [address] [place] [id number] Care Team Providers Care Waste Handling Technician Name Role Phone None, Provider Primary Care Provider Unavaila ble Encounter Details Date Type Department Care Team (Late st Contact Info) Description 06/20/2021 Hospital Follow-up Call [facility] [place], [place] [id number] Zara Herrmann, RN Social History Tobacco Use Types Packs/Day Years [...] PM CDT Sexual Orientation Not on file COVID-19 Exposure Response Date Recorded In the last month, have you been in contact with someone who was confirmed or suspected to have Coronavirus / COVID-19? No / Unsure 05/26/2021 1:04 PM CDT documented as of this encounter Functional Status * RETIRED Are you deaf or do you have serious difficulty hearing Answer Date of Assessment Author Status No 05/26/2021 1:20 PM CDT Activ e * RETIRED Are you blind or do you have serious difficulty seeing, even when wearing glasses? Answer Date of Assessment Author Status No 05/26/2021 1:20 PM CDT Activ e * Do you have serious difficulty walking or climbing stairs? Answer Date of Assessment Author Status No 05/26/2021 1:20 PM CDT Jasmine Azul R N Active * Do you have difficulty dressing or bathing? Answer Date of Assessment Author Status No 05/26/2021 1:20 PM CDT Jasmine Azul R N Active * Because of a physical, mental, or emotional condition, do you have difficulty doing errands alone such as visiting a doctor's office or shopping? Answer Date of Assessment Author Status No 05/26/2021 1:20 PM CDT Jasmine Azul R N Active documented as of this encounter Mental Status * Because of a physical, mental, or emotional condition, do you have serious difficulty concentrating, remembering, or making decisions? Answer Entry Date Author Status No 05/26/2021 1:20 PM CDT Jasmine Azul R N Active documented in this encounter Plan of Treatment Not on file documented as of this encounter Visit Diagnoses Not on filedocumented in this encounter Care Teams Waste Handling Technician Relationship Specialty Start Date End Date None, Provider, PCP - General 05/22/21 documented as of this encounter
--- OUTSIDE RECORDS SUMMARY | 2025-01-14 13:45 | XMS_ITS | Encounter Summary ---
Author Organization [facility] Health Address [address] [place] [address] Care Team Providers Care Oyster Floater Name Role Phone Anali Perez MD Unavailable [phone] Mauri Avila MD Primary Care Provider [phone] Reason for Visit * Reason Onset Date Comments Appointment 03/15/2023 Encounter Details Date Type Department Care Team (Late st Contact Info) Description 03/15/2023 Telephone [facility] [address] [place] [phone] Ely Alvarenga MD [address] [place] [address] Appointment Social History Tobacco Use Types Packs/Day [...] Sex Assigned at Female 10/13/2022 9:35 AM CARDING DOUBLER Legal Sex Female 6:11 PM CARDING DOUBLER Gender Identity Female 10/10/2019 3:50 PM CARDING DOUBLER Sexual Orientation Straight 10/13/2022 9: 35 AM CARDING DOUBLER COVID-19 Exposure Response Date Recorded In the last 10 days, have yo u been in contact with someone who was confirmed or suspected to have Coronavirus/COVID-19? No / Unsure 02/22/2023 3:08 PM CDT documented as of this encounter Miscellaneous Notes * Telephone Encounter - Catherine Paz - 03/15/2023 10:08 AM CDT Patient just wanted me to let Nicole know she has an EGD and Colonoscopy scheduled for March [address] Grimaldo at [facility]. Gave patient our fax number,she will have them fax theresults/ notes once the procedure is done. documented in this encounter Plan of Treatment Not on file documented as of this encounter Visit Diagnoses Not on filedocumented in this encounter Care Teams Oyster Floater Relationship Specialty Start Date End Date Mauri Avila MD [address] [place] [phone] PCP - General Family Medicine 02/23/23 Anali Perez MD [address] [place] [address] Primary Care Provider Obstetrics and Gynecology 02/22/23 documented as of this encounter
[2025-01-15 01:41] LABS: Chlamydia trachomatis NOT DETECTED (NOT DETECTE); Neisseria gonorrhoeae PCR NOT DETECTED (NOT DETECTE); Trichomonas Vag PCR NOT DETECTED (NOT DETECTE)
[2025-01-15 20:28] LABS: Bacterial Vaginosis POSITIVE (NEGATIVE)
== END 2025-01-14 13:23 | disposition home or self-care (01) ==
PROVIDERS: Emergency Provider Nurse Practitioner; PCP Family Medicine
DX: N76.0 Acute vaginitis (principal)
CPT/HCPCS: 81003; 81513; 87070; 87491; 87591; 87661; 99213; G0463